=== PATIENT | female | born 1970 | race Caucasian/White ===

== ENCOUNTER 2017-07-31 19:54 | Emergency (ER) | payer BC ==
[2017-07-31] MEDS ORDERED: ASPIRIN 81 MG TABLET, CHEWABLE PO ONE (21:03)
--- NOTE | 2017-07-31 21:54 | ER Document Report ---
ED Medical Screen (RME) - General Chief Complaint: Chest Pain Stated Complaint: CHEST PAIN Time Seen by Provider: 07/31/17 21:52 Notes: Patient is a 47 year old female who presents to the ED complaining of palpitations that started today and chest pain for 2 months. Patient states that she has had chest pain at least every day described as a sharp pain is worse with certain movements. She states that today it was different because she felt like it was more like pressure with associated palpitations that resolved prior to arrival. Patient does not follow with the primary care doctor. She denies any past medical history for hypertension, hyperlipidemia, diabetes, coronary artery disease. PERC negative TRAVEL OUTSIDE OF THE [place] IN LAST 30 DAYS: No - Related Data Allergies/Adverse Reactions: No Known Allergies Allergy (Unverified 12/10/11 09:27) Past Medical History Pulmonary Medical History: Reports: Hx Pneumonia - years ago Past Surgical History: Reports: Hx Abdominal Surgery - hernia, Hx Appendectomy, Hx Tubal Ligation - Immunizations Hx Diphtheria, Pertussis, Tetanus Vaccination: Yes Physical Exam - Notes Notes: PHYSICAL EXAM GENERAL: Alert, interacts well. HEAD: Normocephalic, atraumatic. EYES: Pupils equal, round, and reactive to light. Extraocular movements intact. NECK: Full range of motion. Supple. Trachea midline. LUNGS: Clear to auscultation bilaterally, no wheezes, rales, or rhonchi. No respiratory distress. HEART: Regular rate and rhythm. No murmurs, gallops, or rubs. NEUROLOGICAL: Alert and oriented x4. Normal speech. PSYCH: Normal affect, normal mood. SKIN: Warm, dry, normal turgor. No rashes or lesions noted.
[2017-07-31 22:07] LABS: ABSOLUTE BASOPHILS # (AUTO) 0.1 10^3/uL (0.0-0.2); ABSOLUTE EOSINOPHILS # (AUTO) 0.3 10^3/uL (0.0-0.6); ABSOLUTE LYMPHOCYTES (AUTO) 2.5 10^3/uL (0.5-4.7); ABSOLUTE MONOCYTES (AUTO) 0.5 10^3/uL (0.1-1.4); ABSOLUTE NEUT (AUTO) 5.2 10^3/uL (1.7-8.2); BASOPHILS % (AUTO) 0.9 % (0-2); EOSINOPHILS % (AUTO) 3.5 % (0-6); HEMATOCRIT 38.7 % (36.0-47.0); HEMOGLOBIN 12.3 g/dL (12.0-15.5); LYMPHOCYTES % (AUTO) 29.5 % (13-45); MEAN CORPUSCULAR HEMOGLOBIN 24.7 pg (27.0-33.4); MEAN CORPUSCULAR HGB CONC 31.9 g/dL (32.0-36.0); MEAN CORPUSCULAR VOLUME 77 fl (80-97); MONOCYTES % (AUTO) 6.2 % (3-13); PLATELET COUNT 405 10^3/uL (150-450); RED BLOOD COUNT 5.01 10^6/uL (3.72-5.28); RED CELL DISTRIBUTION WIDTH 17.3 % (11.5-14.0); SEGMENTED NEUTROPHILS % (AUTO) 59.9 % (42-78); TOTAL CELLS COUNTED % (AUTO) 100 %; WHITE BLOOD COUNT 8.6 10^3/uL (4.0-10.5)
--- NOTE | 2017-07-31 22:16 | RADIOLOGY REPORT (SQ) ---
EXAM DESCRIPTION: CHEST SINGLE VIEW COMPLETED DATE/TIME: 07/31/2017 10:07 pm REASON FOR STUDY: cp COMPARISON: 04/08/2014 EXAM PARAMETERS: NUMBER OF VIEWS: One view. TECHNIQUE: Single frontal radiographic view of the chest acquired. RADIATION DOSE: NA LIMITATIONS: None. FINDINGS: LUNGS AND PLEURA: No opacities, masses or pneumothorax. No pleural effusion. MEDIASTINUM AND HILAR STRUCTURES: No masses. Contour normal. HEART AND VASCULAR STRUCTURES: Heart normal in size. Normal vasculature. BONES: No acute findings. HARDWARE: None in the chest. OTHER: No other significant finding. IMPRESSION: NO ACUTE RADIOGRAPHIC FINDING IN THE CHEST. TECHNICAL DOCUMENTATION: JOB ID: [id number] [email or web address]- All Rights Reserved Reading location - IP/workstation name: [email or web address]
[2017-07-31 22:26] LABS: ALANINE AMINOTRANSFERASE 19 U/L (9-52); ALBUMIN 4.3 g/dL (3.5-5.0); ALKALINE PHOSPHATASE 92 U/L (38-126); ANION GAP 11 (5-19); ASPARTATE AMINO TRANSFERASE 18 U/L (14-36); BILIRUBIN,DIRECT 0.1 mg/dL (0.0-0.4); BILIRUBIN,TOTAL 0.1 mg/dL (0.2-1.3); BLOOD UREA NITROGEN 11 mg/dL (7-20); CALCIUM 9.6 mg/dL (8.4-10.2); CARBON DIOXIDE 27 mmol/L (22-30); CHLORIDE 106 mmol/L (98-107); CREATINE KINASE 90 U/L (30-135); GLUCOSE 186 mg/dL (75-110); POTASSIUM 3.9 mmol/L (3.6-5.0); SODIUM 144.3 mmol/L (137-145); TOTAL PROTEIN 6.9 g/dL (6.3-8.2)
[2017-07-31 22:44] LABS: CREATINE KINASE MB 0.78 ng/mL (<4.55); TROPONIN I < 0.012 ng/mL
--- NOTE | 2017-07-31 23:30 | ER Document Report ---
ED General - General Chief Complaint: Chest Pain Stated Complaint: CHEST PAIN Time Seen by Provider: 07/31/17 21:52 Mode of Arrival: Ambulatory Information source: Patient Notes: This is a 47-year-old female with no prior medical problems, presents to the emergency room with episodes of palpitations. Patient does manage about 1 pack a day. She does report drinking a lot of coffee throughout the day while at work. She denies any shortness of breath or chest pressure with exertion. She states it feels like her heart is racing and then she will have several lab besides throughout the day today. She denies any calf pain or tenderness. She has no shortness of breath at this time. Patient does have 2 brothers which are healthy. Her sister does have diabetes and hypertension. Her dad from alcohol abuse. The patient's mother recently of an [place]. TRAVEL OUTSIDE OF THE [place] IN LAST 30 DAYS: No - HPI Onset: This afternoon Onset/Duration: Sudden Quality of pain: No pain Severity: None Pain Level: Denies Associated symptoms: denies: Chills, Fever, Shortness of breath Exacerbated by: Denies Relieved by: Denies Similar symptoms previously: Yes Recently seen / treated by doctor: No - Related Data Allergies/Adverse Reactions: No Known Allergies Allergy (Unverified 12/10/11 09:27) Past Medical History - General Information source: Patient - Social History Smoking Status: Current Every Day Smoker Cigarette use (# per day): Yes Chew tobacco use (# tins/day): No Smoking Education Provided: Yes Frequency of alcohol use: None Drug Abuse: None Lives with: Spouse/Significant other Family History: Reviewed & Not Pertinent Patient has suicidal ideation: No - 2 minutes Patient has homicidal ideation: No Pulmonary Medical History: Reports: Hx Pneumonia - years ago Past Surgical History: Reports: Hx Abdominal Surgery - hernia, Hx Appendectomy, Hx Tubal Ligation - Immunizations Hx Diphtheria, Pertussis, Tetanus Vaccination: Yes Review of Systems - Review of Systems Constitutional: denies: Chills, Fever EENT: No symptoms reported Cardiovascular: See HPI, Palpitations, Heart racing Respiratory: No symptoms reported Gastrointestinal: No symptoms reported Genitourinary: No symptoms reported Female Genitourinary: No symptoms reported Musculoskeletal: No symptoms reported Skin: No symptoms reported Hematologic/Lymphatic: No symptoms reported Neurological/Psychological: No symptoms reported Physical Exam - Vital signs Vitals: Temp Pulse Resp BP Pulse Ox 97.9 F 94 20 144/76 H 95 07/31/17 20:11 07/31/17 20:11 07/31/17 20:11 07/31/17 20:11 07/31/17 20:11 Notes: Physical exam: GENERAL: A 47-year-old female, alert and oriented 3, no acute distress HEAD: Atraumatic, normocephalic. EYES: Pupils equal round and reactive to light, extraocular movements intact, sclera anicteric, conjunctiva are normal. ENT: TMs normal, nares patent, oropharynx clear without exudates. Moist mucous membranes. NECK: Normal range of motion, supple without obvious mass or JVD. LUNGS: Breath sounds clear to auscultation bilaterally and equal. No wheezes rales or rhonchi. HEART: Regular rate and rhythm without murmurs, rubs or gallops. ABDOMEN: Soft, normoactive bowel sounds. No tenderness to palpation. No guarding, no rebound. No masses appreciated. EXTREMITIES: Normal range of motion, no pitting or edema. No clubbing or cyanosis. NEUROLOGICAL: Cranial nerves II through XII grossly intact. Normal speech, moving all extremities. PSYCH: Normal mood, normal affect. SKIN: Warm, Dry, normal turgor, no rashes or lesions noted. Course - Vital Signs Vital signs: Temp Pulse Resp BP Pulse Ox 98.0 F 71 16 108/65 100 08/01/17 01:47 08/01/17 01:47 08/01/17 01:47 08/01/17 01:47 08/01/17 01:47 - Laboratory Result Diagrams: 07/31/17 21:55 07/31/17 21:55 Laboratory results interpreted by me: 07/31/17 07/31/17 21:55 21:55 MCV 77 L MCH 24.7 L MCHC 31.9 L RDW 17.3 H Glucose 186 H Total Bilirubin 0.1 L - Diagnostic Test Radiology reviewed: Image reviewed, Reports reviewed - Chest x-ray shows no infiltrates or effusions - EKG Interpretation by Me Rate: Normal Rhythm: NSR - EKG shows normal sinus rhythm with a ventricular rate of 93, no acute ST-T wave changes Discharge - Discharge Clinical Impression: Palpitations Condition: Stable Disposition: HOME, SELF-CARE Additional Instructions: I would like you to follow-up with Dr. Shay for the palpitations. I wrote his number on the chart. In the meantime, if you can cut down on some of the caffeine and some smoking, that would be productive. Keep in mind that your sugar was a little high tonight and this will need to be repeated by primary care doctor. Primary Care Doctor's affiliated with [facility]: If you do not have a primary care doctor or you are unable to get an appointment during that time, you can try one of the doctor's below. These are internal medicine doctor's that have admitting priveledges to the hospital ( they will see you both in the office as well as in this hospital if you are ever hospitalized here). Dr. Art Mathur [facility] [address], [place] [address] [phone] Dr Solitario Address: [address] [place] [address] , [place] [address] Dr Perez Address: [address] [place] [address] , [place] [address] If you don't have insurance: follow-up at the [facility] which is a free clinic. [address], [place] [address] [phone] Referrals: BENITO SHAY MD [ACTIVE STAFF] - Follow up as needed (This is Dr. Shay, he is a animal humane agent supervisor for the palpitations.)
[2017-08-01 01:50] VITALS: BP 108/65
--- NOTE | 2017-08-01 07:45 | EKG REPORT ---
SEVERITY:- BORDERLINE ECG - SINUS RHYTHM BORDERLINE T ABNORMALITIES, ANT-LAT LEADS : Confirmed by: Roderick Yen MD 01-Aug-2017 07:44:45
== END 2017-08-01 01:49 | disposition home or self-care (01) ==
LOC: ER 19:54
DX: R00.2 Palpitations (principal); F17.210 Nicotine dependence, cigarettes, uncomplicated; Z82.49 Family history of ischemic heart disease and other diseases of the circulatory system
CPT/HCPCS: 36415; 71045; 80053; 82550; 82553; 84443; 84484; 85025; 93005; 93010; 99285

== ENCOUNTER 2018-11-08 17:46 | Emergency (ER) | payer BC, OTHER ==
--- NOTE | 2018-11-08 18:15 | ER Document Report ---
ED Medical Screen (RME) - General Chief Complaint: Leg Swelling Stated Complaint: LEG/FOOT PAIN Time Seen by Provider: 11/08/18 18:05 TRAVEL OUTSIDE OF THE [place] IN LAST 30 DAYS: No - HPI Notes: 11/08/18 18:13 Patient is a 48-year-old female no significant past medical history presents complaining of right lower leg and foot swelling and pain over the past few weeks after breaking her fifth toe. Patient states that the leg is starting to get warm and a little red distally. No history of DVT or PE. She does not take any medications daily. No recent distance travel. Denies ORTIZ, fever, neck pain, URI, CP, SOB, Abd pain, dysuria, back pain, or rash. I have treated and performed a rapid initial assessment of this patient. A comprehensive ED assessment and evaluation of the patient, analysis of test results and completion of medical decision making process will be conducted by additional ED providers. PHYSICAL EXAMINATION: GENERAL: Well-appearing, well-nourished and in no acute distress. Answers questions appropriately. LUNGS: Breath sounds clear to auscultation bilaterally and equal. No wheezes rales or rhonchi. HEART: Regular rate and rhythm without murmurs, rubs, gallops. Extremities: 1+ pitting edema LLE. 2+ pitting edema RLE. 2+ pulses. Cap refill <3 seconds. N/V intact distal. + tenderness rt dorsal foot, calf, and to 5th toe. NEUROLOGICAL: Normal speech, limping gait. PSYCH: Normal mood, normal affect. - Related Data Allergies/Adverse Reactions: No Known Allergies Allergy (Unverified 12/10/11 09:27) Past Medical History Pulmonary Medical History: Reports: Hx Pneumonia - years ago Renal/ Medical History: Denies: Hx Peritoneal Dialysis Past Surgical History: Reports: Hx Abdominal Surgery - hernia, Hx Appendectomy, Hx Tubal Ligation - Immunizations Hx Diphtheria, Pertussis, Tetanus Vaccination: Yes Physical Exam - Vital signs Vitals: Temp Pulse Resp BP Pulse Ox 98.7 F 94 16 140/82 H 97 11/08/18 18:01 11/08/18 18:01 11/08/18 18:01 11/08/18 18:01 11/08/18 18:01 Course - Vital Signs Vital signs: Temp Pulse Resp BP Pulse Ox 98.7 F 94 16 140/82 H 97 08/01/19 18:01 11/08/18 18:01 11/08/18 18:01 11/08/18 18:01 11/08/18 18:01
[2018-11-08 18:32] LABS: ABSOLUTE BASOPHILS # (AUTO) 0.1 10^3/uL (0.0-0.2); ABSOLUTE EOSINOPHILS # (AUTO) 0.2 10^3/uL (0.0-0.6); ABSOLUTE LYMPHOCYTES (AUTO) 2.2 10^3/uL (0.5-4.7); ABSOLUTE MONOCYTES (AUTO) 0.8 10^3/uL (0.1-1.4); ABSOLUTE NEUT (AUTO) 7.4 10^3/uL (1.7-8.2); BASOPHILS % (AUTO) 0.7 % (0-2); EOSINOPHILS % (AUTO) 2.2 % (0-6); HEMATOCRIT 39.7 % (36.0-47.0); HEMOGLOBIN 12.7 g/dL (12.0-15.5); LYMPHOCYTES % (AUTO) 20.4 % (13-45); MEAN CORPUSCULAR HEMOGLOBIN 25.5 pg (27.0-33.4); MEAN CORPUSCULAR HGB CONC 31.9 g/dL (32.0-36.0); MEAN CORPUSCULAR VOLUME 80 fl (80-97); MONOCYTES % (AUTO) 7.3 % (3-13); PLATELET COUNT 350 10^3/uL (150-450); RED BLOOD COUNT 4.97 10^6/uL (3.72-5.28); RED CELL DISTRIBUTION WIDTH 16.8 % (11.5-14.0); SEGMENTED NEUTROPHILS % (AUTO) 69.4 % (42-78); TOTAL CELLS COUNTED % (AUTO) 100 %; WHITE BLOOD COUNT 10.7 10^3/uL (4.0-10.5)
[2018-11-08 18:52] LABS: ANION GAP 9 (5-19); BLOOD UREA NITROGEN 9 mg/dL (7-20); CALCIUM 9.3 mg/dL (8.4-10.2); CARBON DIOXIDE 24 mmol/L (22-30); CHLORIDE 107 mmol/L (98-107); GLUCOSE 114 mg/dL (75-110); POTASSIUM 4.3 mmol/L (3.6-5.0)
--- NOTE | 2018-11-08 19:17 | RADIOLOGY REPORT (SQ) ---
EXAM DESCRIPTION: FOOT RIGHT COMPLETE COMPLETED DATE/TIME: 11/08/2018 7:00 pm REASON FOR STUDY: pain/swelling, recent 5th toe fx 3 weeks ago COMPARISON: None. EXAM PARAMETERS: NUMBER OF VIEWS: Three views. TECHNIQUE: AP, lateral and oblique radiographic images acquired of the right foot. LIMITATIONS: None. FINDINGS: MINERALIZATION: Normal. BONES: Nondisplaced oblique fracture in the midportion of the proximal phalanx of the right 5th digit with evidence of healing. No other fracture identified. JOINTS: No effusion. SOFT TISSUES: Mild soft tissue swelling. No radiopaque foreign body. OTHER: No other significant finding. IMPRESSION: Nondisplaced oblique fracture in the midportion of the proximal phalanx of the right 5th digit with evidence of healing. TECHNICAL DOCUMENTATION: JOB ID: [id number]- All Rights Reserved Reading location - IP/workstation name: [email or web address]
[2018-11-08] MEDS ORDERED: CEPHALEXIN 500 MG CAPSULE PO ONE (21:21)
[2018-11-08] MEDS ORDERED: ACETAMINOPHEN 325 MG TABLET PO ONE (21:21)
--- NOTE | 2018-11-08 21:24 | ER Document Report ---
ED General - General Chief Complaint: Leg Swelling Stated Complaint: LEG/FOOT PAIN Time Seen by Provider: 11/08/18 18:05 Primary Care Provider: TANYA HERNANDEZ [NO LOCAL MD] - Follow up in 1 week Notes: Patient is a 48-year-old female who presents the emergency department with a chief complaint of right leg swelling. She had a recent fracture of her fifth toe about 3 weeks ago. She states that the pain has been increasing over time. She has been walking on it. She noticed some redness. She denies any fever, shortness of breath, difficulty breathing, or any other symptoms at this time. She states that she has been eating ibuprofen for the pain, but she still continues to have pain. Denies any past medical history. TRAVEL OUTSIDE OF THE [place] IN LAST 30 DAYS: No - Related Data Allergies/Adverse Reactions: No Known Allergies Allergy (Unverified 12/10/11 09:27) Past Medical History - Social History Smoking Status: Current Every Day Smoker Frequency of alcohol use: None Drug Abuse: None Family History: Reviewed & Not Pertinent Patient has suicidal ideation: No Patient has homicidal ideation: No Pulmonary Medical History: Reports: Hx Pneumonia - years ago Renal/ Medical History: Denies: Hx Peritoneal Dialysis Past Surgical History: Reports: Hx Abdominal Surgery - hernia, Hx Appendectomy, Hx Tubal Ligation - Immunizations Hx Diphtheria, Pertussis, Tetanus Vaccination: Yes Review of Systems - Review of Systems Notes: REVIEW OF SYSTEMS: CONSTITUTIONAL : Denies recent illness. Denies recent unintentional weight loss. Denies fever, chills, or sweats. EENT: Denies eye, ear, throat, or mouth pain, discharge, or symptoms. Denies nasal or sinus congestion. CARDIOVASCULAR: Denies chest pain. RESPIRATORY: Denies shortness of breath, cough, congestion, difficulty breathing, or wheezing. GASTROINTESTINAL: Denies nausea, vomiting, and diarrhea. Denies abdominal pain. Denies constipation. GENITOURINARY: Denies difficulty urinating, burning, blood in urine, urgency or frequency. MUSCULOSKELETAL: See HPI SKIN: See HPI HEMATOLOGIC : Denies easy bruising or bleeding. LYMPHATIC: Denies swollen, painful, enlarged glands. NEUROLOGICAL: Denies no numbness or tingling denies weakness. Denies headache. Denies altered mental status. Denies alteration in speech. PSYCHIATRIC: Denies stress, anxiety, alteration in sleep patterns, or depres oren. All other systems reviewed and negative. Physical Exam - Vital signs Vitals: Temp Pulse Resp BP Pulse Ox 98.7 F 94 16 140/82 H 97 11/08/18 18:01 11/08/18 18:01 11/08/18 18:01 11/08/18 18:11/08/18 18:01 - Notes Notes: PHYSICAL EXAMINATION: GENERAL: Appears well, healthy, well-nourished, no acute distress. HEAD: Normocephalic, atraumatic. EYES: PERRL, conjunctiva normal, all extraocular movements intact, sclera nonicteric ENT: Moist mucous membranes. NECK: Supple, no noticeable swelling, redness, rash. Normal range of motion. LUNGS: Equal breath sounds bilaterally and clear to auscultation. No wheezes rales or rhonchi. CARDIOVASCULAR: S1-S2, regular rate, regular rhythm. Radial pulses 2+, normal. ABDOMEN: Normoactive bowel sounds. Soft, nontender, no guarding, no rebound tenderness, and no masses palpated. EXTREMITIES: Normal strength and range of motion. No cyanosis. Edema and erythema noted to right lower leg. NEUROLOGICAL: Moves all extremities upon command. Strength 4 out of 5 in right lower extremity due to pain. Strength 5/5 in all other extremities. PSYCH: Normal mood, normal affect. SKIN: Warm, dry. No rash, lesions, ulcerations noted. Normal skin turgor. Course - Re-evaluation Re-evalutation: 11/08/18 21:20 X-ray shows an healing 5 digit fracture, which we already know that she had a fracture. Patient's unofficial read of her venous Doppler study is negative for any DVT. Patient presents with symptoms most consistent with an acute cellulitis. Vitals within normal limits. Patient does not meet sepsis criteria is overall very well in appearance. Exam and history are not consistent with DVT. Patient will be started on antibiotic coverage. At this time will discharge with return precautions and follow-up recommendations. Verbal discharge instructions given a the bedside and opportunity for questions given. Medication warnings reviewed. Patient will be given crutches. Patient is in agreement with this plan and has verbalized understanding of return precautions and the need for primary care follow-up in the next 24-72 hours. - Vital Signs Vital signs: Temp Pulse Resp BP Pulse Ox 98.1 F 76 16 126/71 H 98 11/08/18 21:33 11/08/18 21:33 11/08/18 21:33 11/08/18 21:33 11/08/18 21:33 - Laboratory Result Diagrams: 11/08/18 18:20 11/08/18 18:20 Laboratory results interpreted by me: 11/08/18 11/08/18 18:20 18:20 WBC 10.7 H MCH 25.5 L MCHC 31.9 L RDW 16.8 H Glucose 114 H Procedures - Immobilization Right Foot Pre-Proc Neuro Vasc Exam: Normal Immobilizer type: Crutches Performed by: PCT Post-Proc Neuro Vasc Exam: Normal, Unchanged from pre-exam Alignment checked and good: Yes Notes: Patient already has postop shoe. Discharge - Discharge Clinical Impression: Right foot pain, Right leg pain Cellulitis Qualifiers: Site of cellulitis: extremity Site of cellulitis of extremity: lower extremity Laterality: right Qualified Code(s): L03.115 - Cellulitis of right lower limb Disposition: HOME, SELF-CARE Additional Instructions: The rash is likely due to infection of your skin. You need to take the antibiotics as prescribed. Do not stop even if the rash goes away until you have completed all the antibiotics. You need to return to emergency department if the redness spreads in any direction. You should also return if you develop fevers with temperature greater than 101, persistent vomiting, worsening pain, or have any other symptoms that are concerning to you. You can take Tylenol 1000 mg and ibuprofen 600 mg every 6 hours for your pain. Follow-up with a primary care provider in 1 week in regards to this visit. Prescriptions: Cephalexin Monohydrate [Keflex 500 mg Capsule] 500 mg PO Q6H 7 Days #28 capsule Forms: Return to Work Referrals: LOCAL,NO [NO LOCAL MD] - Follow up in 1 week
[2018-11-08 21:35] VITALS: BP 126/71
--- NOTE | 2018-11-09 08:37 | XCELERA REPORT ---
[address] [place] [facility] [place] [address] Lower Extremity Venous Evaluation Procedure: Color flow and duplex imaging of the veins of the right lower extremity as well as the left Common Femoral vein. Right Sided Venous Evaluation Normal vessel filling wall to wall, compression and augmentation as well as Colour flow down to the infrageniculate veins. Left Sided Venous Evaluation The left common femoral vein is fully compressible. Spontaneous and phasic flow is present in the left common femoral vein. Interpretation Summary No duplex evidence of DVT or obstruction in the right lower extremity nor in the left Common Femoral vein. Name: NEGRO SMALL Age: 48 yrs Gender: Female : 1970 Patient Status: Emergency Patient Location: ER Study Date: 11/08/2018 06:50 PM Reason For Study: Rt leg swelling/pain Ordering Physician: JOHNNY MOLINA Performed By: Amalia Burr : JOHNNY MOLINA > Zachary Summers
== END 2018-11-08 21:35 | disposition home or self-care (01) ==
LOC: ER 17:46
DX: L03.115 Cellulitis of right lower limb (principal); M79.671 Pain in right foot; M79.604 Pain in right leg; F17.200 Nicotine dependence, unspecified, uncomplicated
CPT/HCPCS: 36415; 80048; 85025; 93971; 99284

== ENCOUNTER → 2018-11-23 | Outpatient (CLI) | payer BC ==
--- NOTE | 2018-11-23 14:29 | WOMENS IMAGING REPORT ---
EXAM DESCRIPTION: BILAT SCREENING MAMMO W/CAD COMPLETED DATE/TIME: 11/23/2018 2:03 pm REASON FOR STUDY: Z12.31 SCREENING MAMMO Z12.31 ENCNTR SCREEN MAMMOGRAM FOR MALIGNANT NEOPLASM OF B RE COMPARISON: None. EXAM PARAMETERS: Standard craniocaudal and mediolateral oblique views of each breast recorded using digital acquisition. Read with the assistance of CAD. .[facility] - [employer]2 [employer] Supervisor Version 9.2 LIMITATIONS: None. FINDINGS: No suspicious masses, suspicious calcifications or architectural distortion. No areas of c oncern. IMPRESSION: Negative MAMMOGRAM. BIRADS 1 BREAST DENSITY: a. The breasts are almost entirely fatty. BIRAD: ASSESSMENT: 1 NEGATIVE RECOMMENDATION: ROUTINE SCREENING COMMENT: The patient has been notified of the results by letter per MQSA requirements. Additional no tification policies are in place for contacting patient with suspicious or incomplete findings. Quality ID #225: The [employer] recommends an annual screening mammogram for women aged 40 years or over. This facility utilizes a reminder system to ensure that all patients receive reminder letters, and/or direct phone calls for appointments. This includes reminders for routine scr eening mammograms, diagnostic mammograms, or other Breast Imaging Interventions when appropriate. Th is patient will be placed in the appropriate reminder system. TECHNICAL DOCUMENTATION: FINDING NUMBER: (1) ASSESSMENT: (1) JOB ID: [id number] [employer]- All Rights Reserved Reading location - IP/workstation name: [email or web address]
== END ==
LOC: WI 13:40
PROVIDERS: ATTEND Internal Medicine
DX: Z12.31 Encounter for screening mammogram for malignant neoplasm of breast (principal)
CPT/HCPCS: 77067

== ENCOUNTER → 2018-12-11 | Outpatient (CLI) | payer BC ==
--- NOTE | 2018-12-11 09:35 | WOMENS IMAGING REPORT ---
EXAM DESCRIPTION: U/S ABDOMEN TOTAL COMPLETED DATE/TIME: 12/11/2018 7:46 am REASON FOR STUDY: K43.9 VENTRAL HERNIA WITHOUT OBSTRUCTION OR GANGRENE K43.9 VENTRAL HERNIA WITHOUT OBSTRUCTION OR GANGRENE COMPARISON: None. TECHNIQUE: Dynamic and static grayscale images acquired of the abdomen and recorded on PACS. Additio nal selected color Doppler and spectral images recorded. Note: Study does not meet criteria for complete doppler/duplex scan LIMITATIONS: Limited visualization of some organs. FINDINGS: PANCREAS: Partial visualization. Unremarkable. LIVER: No focal lesions. No intrahepatic ductal dilation. LIVER VASCULATURE: Normal directional flow of the main portal vein and hepatic veins. GALLBLADDER: No stones. Normal wall thickness. No pericholecystic fluid. ULTRASOUND-DETECTED ROMANO'S SIGN: Negative. INTRAHEPATIC DUCTS AND COMMON DUCT: CBD and intrahepatic ducts normal caliber. No filling defects. INFERIOR VENA CAVA: Normal flow. AORTA: Partially visualized. No aneurysm identified. RIGHT KIDNEY: Normal in size measuring 9.1 cm. Normal echogenicity. No solid or suspicious idalia s. No hydronephrosis. No calcifications. LEFT KIDNEY: Normal in size measuring 10.0 cm. Normal echogenicity. No solid or suspicious idalia s. No hydronephrosis. No calcifications. SPLEEN: Normal size. No solid masses. PERITONEAL AND PLEURAL SPACES: No ascites or effusions. OTHER: Right lower quadrant hernia identified. No definitive evidence of bowel IMPRESSION: 1. Right inguinal fat containing hernia. No definitive visualization of bowel. 2. Otherwise, unremarkable abdominal ultrasound. TECHNICAL DOCUMENTATION: JOB ID: [id number] [employer]- All Rights Reserved Reading location - IP/workstation name: [email or web address]
== END ==
LOC: WI 07:09
PROVIDERS: ATTEND Internal Medicine
DX: K43.9 Ventral hernia without obstruction or gangrene (principal)
CPT/HCPCS: 76700

== ENCOUNTER → 2018-12-27 | Outpatient (CLI) | payer BC ==
--- NOTE | 2018-12-27 14:52 | RADIOLOGY REPORT (SQ) ---
EXAM DESCRIPTION: VENOUS UNILATERAL LOWER COMPLETED DATE/TIME: 12/27/2018 2:00 pm REASON FOR STUDY: RLE PAIN / SWELLING I82.401 ACUTE EMBOLISM AND THOMBOS UNSP DEEP VEINS OF R LOW COMPARISON: None. TECHNIQUE: Dynamic and static le scale and color images acquired of the right leg venous system. S elected spectral images acquired with additional compression and augmentation maneuvers. The contrala teral common femoral vein and saphenofemoral junction were also imaged. Images stored on PACS. LIMITATIONS: None. FINDINGS: COMMON FEMORAL: Normal phasicity, compression and augmentation. No visualized echogenic ma terial on le scale. No defects on color images. FEMORAL: Normal compression and augmentation. No visualized echogenic material on le scale. No defe cts on color images. POPLITEAL: Normal compression, augmentation. No visualized echogenic material on le scale. No defec ts on color images. CALF VESSELS: Normal compression, augmentation. No visualized echogenic material on le scale. No de fects on color images. GSV and SSV: Normal compression, augmentation. No visualized echogenic material on le scale. No def ects on color images. ANY DEEP VENOUS INSUFFICIENCY: Not evaluated. ANY EVIDENCE OF POPLITEAL CYST: No. OTHER: No other significant finding. CONTRALATERAL COMMON FEMORAL VEIN AND SAPHENOFEMORAL JUNCTION: Normal phasicity, compression and augmentation. No visualized echogenic material on le scale. No de fects on color images. IMPRESSION: NO EVIDENCE DVT OR SVT IN THE RIGHT LEG. TECHNICAL DOCUMENTATION: JOB ID: [id number] [employer]- All Rights Reserved Reading location - IP/workstation name: [email or web address]
== END ==
LOC: SP 12:46
PROVIDERS: ATTEND Podiatrist Foot & Ankle Surgery
DX: I82.401 Acute embolism and thrombosis of unspecified deep veins of right lower extremity (principal)
CPT/HCPCS: 93971

== ENCOUNTER → 2019-01-01 | Outpatient (CLI) | payer BC ==
--- NOTE | 2019-01-01 09:34 | RADIOLOGY REPORT (SQ) ---
EXAM DESCRIPTION: CT ABD/PELVIS WITH IV ORAL COMPLETED DATE/TIME: 01/01/2019 8:22 am REASON FOR STUDY: (K42.9)UMBILICAL HERNIA WITHOUT OBSTRUCTION OR GANGRENE K42.9 UMBILICAL HERNIA WI THOUT OBSTRUCTION OR GANGRENE COMPARISON: None. TECHNIQUE: CT scan of the abdomen and pelvis performed using helical scanning technique with dynamic intravenous contrast injection. No oral contrast. Images reviewed with lung, soft tissue, and bone windows. Reconstructed coronal and sagittal MPR images reviewed. Delayed images for evaluation of the urinary system also acquired. All images stored on PACS. All CT scanners at this facility use dose modulation, iterative reconstruction, and/or weight based d osing when appropriate to reduce radiation dose to as low as reasonably achievable (ALARA). [facility]: Dose Right [facility]: CareDose [facility]: Dose Right [facility]: Teradose 4D [facility]: [place] CONTRAST TYPE AND DOSE: Contrast/Concentration: Isovue 350.00 mg/ml; Total Contrast Delivered: 100.0 ml; Total Saline Delivered: 72.0 ml RENAL FUNCTION: Creatinine 0.7 mg per dL RADIATION DOSE: CT Rad equipment meets quality standard of care and radiation dose reduction techniq ues were employed. CTDIvol: 23.4 - 26.0 mGy. DLP: 2703 mGy-cm.. LIMITATIONS: None. FINDINGS: LOWER CHEST: No basilar consolidation, pleural effusion or pneumothorax. No cardiomegaly or pericardial effusion. LIVER: The relative hypoattenuation of the hepatic parenchyma compared to the splenic parenchyma on t he portal venous phase is suggestive of hepatic steatosis. There is no hepatic mass. The portal and hepatic veins are patent. There is no dilatation of the intrahepatic biliary ducts. SPLEEN: No splenomegaly. PANCREAS: No abnormality. GALLBLADDER: No abnormality that is apparent on CT. ADRENAL GLANDS: Incidental left adrenal nodule that measures 2 x 1.5 cm in the axial plane and 1.4 cm in craniocaudal diameter. There is no abnormality of the right adrenal gland. RIGHT KIDNEY AND URETER: No solid masses. No calcifications. No hydronephrosis or hydroureter. LEFT KIDNEY AND URETER: No solid masses. No calcifications. No hydronephrosis or hydroureter. AORTA AND VESSELS: No aneurysmal dilatation of the abdominal aorta or dissection. RETROPERITONEUM: Nonenlarged left common iliac and right obturator lymph nodes that measure up to 5 m m in short axis diameter. BOWEL AND PERITONEAL CAVITY: No evidence of obstruction, bowel wall thickening, or pericolonic/ perie nteric inflammation. No mesenteric adenopathy, mesenteric mass, or free intraperitoneal air/gas. APPENDIX: Unable to visualize the appendix. PELVIS: Probable corpus luteum cyst in the left adnexa that measures up to 1.6 x 1.5 cm. There is no right adnexal mass. There are uterine fibroids. The urinary bladder is normal in appearance. Ther e is no pelvic adenopathy or free fluid. ABDOMINAL WALL: Fat containing periumbilical hernia with mild stranding of the herniated fat. BONES: No acute findings. OTHER: No other findings. IMPRESSION: 1. Probable hepatic steatosis. 2. Incidental left adrenal nodules that measures 2 x 1.5 cm in the axial plane and 1.4 cm in cranioca udal diameter. The main differential consideration is an adenoma. If of concern further evaluation with a multiphase adrenal protocol CT or MRI could be obtained. 3. Uterine fibroids and probable left-sided corpus luteum cyst. 4. Fat containing paraumbilical hernia with mild stranding of the herniated fat. TECHNICAL DOCUMENTATION: JOB ID: [id number] Quality ID # [id number]: Final reports with documentation of one or more dose reduction techniques (e.g., Au tomated exposure control, adjustment of the mA and/or kV according to patient size, use of iterative reconstruction technique) 2010 [employer]- All Rights Reserved Reading location - IP/workstation name: [email or web address]
== END ==
LOC: RAD 07:40
PROVIDERS: ATTEND Surgery
DX: K42.9 Umbilical hernia without obstruction or gangrene (principal); E27.9 Disorder of adrenal gland, unspecified; D25.9 Leiomyoma of uterus, unspecified
CPT/HCPCS: 74177; 82565